=== PATIENT | female | born 1995 | race Caucasian/White ===

== ENCOUNTER 2021-12-26 04:04 | Emergency (ER) | payer MEDICAID ==
[~2021-12-26] VITALS: Ht 167.6 cm; Wt 90.7 kg
[2021-12-26] MEDS ORDERED: SERT100 PO (04:59)
[2021-12-26] MEDS ORDERED: ONDANSETRON ODT 4MG (05:00)
[2021-12-26] MEDS ORDERED: DOC250 PO (05:17)
[2021-12-26] MEDS ORDERED: HYDCOR2.5C PR (05:17)
== END 2021-12-26 05:45 | disposition home or self-care (01) ==
LOC: ER 04:04
DX: K92.1 Melena (principal); K62.89 Other specified diseases of anus and rectum; Z88.1 Allergy status to other antibiotic agents; Z79.899 Other long term (current) drug therapy
CPT/HCPCS: 99282